=== PATIENT | male | born 1960 | race Caucasian/White ===

== ENCOUNTER 2019-11-14 22:51 | Emergency (ER) | payer BC, OTHER ==
[2019-11-14 22:59] VITALS: RESP 16
--- NOTE | 2019-11-14 23:26 | CT ---
EXAM: CT Head Without Intravenous Contrast CLINICAL HISTORY: Trauma TECHNIQUE: Axial computed tomography images of the head/brain without intravenous contrast. CTDI is 0.085, 0.085, 45.2, 12.4 mGy and DLP is 1403.4 mGy-cm. This CT exam was performed using one or more of the following dose reduction techniques: automated exposure control, adjustment of the mA and/or kV according to patient size, and/or use of iterative reconstruction technique. COMPARISON: No relevant prior studies available. FINDINGS: Brain: Scattered subarachnoid hemorrhage within the left cerebral hemisphere. Small left subdural hematoma measuring up to 5 mm without significant mass effect. Ventricles: Unremarkable. No ventriculomegaly. Bones/joints: Unremarkable. No acute fracture. Soft tissues: Posterior right scalp soft tissue swelling, likely posttraumatic. Sinuses: Mild mucosal thickening in the paranasal sinuses. Mastoid air cells: Unremarkable as visualized. No mastoid effusion. IMPRESSION: 1. Scattered subarachnoid hemorrhage within the left cerebral hemisphere. 2. Small left subdural hematoma measuring up to 5 mm without significant mass effect. EXAM: CT Cervical Spine Without Intravenous Contrast CLINICAL HISTORY: Trauma TECHNIQUE: Axial computed tomography images of the cervical spine without intravenous contrast. CTDI is 0.085, 0.085, 45.2, 12.4 mGy and DLP is 1403.4 mGy-cm. This CT exam was performed using one or more of the following dose reduction techniques: automated exposure control, adjustment of the mA and/or kV according to patient size, and/or use of iterative reconstruction technique. COMPARISON: No relevant prior studies available. FINDINGS: Vertebrae: No acute fracture or traumatic malalignment. Discs/spinal canal/neural foramina: Multilevel degenerative changes. No spinal canal stenosis. Soft tissues: Unremarkable. Lung apices: Centrilobular emphysema. IMPRESSION: No acute findings in the cervical spine. <MYCVCSECTION> Communications: 11/14/19 23:35 Call Doctor Regarding Above results, called MD Atkinson on 11/14 23:34 (-05:00)
--- NOTE | 2019-11-14 23:27 | ED ---
General Adult HPI - General Chief complaint: Fall Stated complaint: fall Time Seen by Provider: 11/14/19 22:51 Source: patient, EMS, RN notes reviewed Mode of arrival: EMS - History of Present Illness Initial comments: 59-year-old male presentsstatus post fall. Patient was climbing up stairs, his toe caught and he fell backwards striking the back of his head. He was unconscious for approximately 5 minutes according to his . No seizure activity. Patient was ambulatory according to EMS he is brought to the emergency department for evaluation. He has been drinking alcohol this evening and is clinically intoxicated. He is complaining of a mild headache. No neck pain. He was placed in a cervical collar by EMS prior to arrival. No anticoagulation. No other injuries reported from the patient. - Related Data Home Medications Medication Instructions Recorded Confirmed Gabapentin 600 mg PO BID 10/18/17 10/24/17 Ibuprofen [Motrin] 800 mg PO DAILY PRN 10/18/17 10/24/17 Allergies Allergy/AdvReac Type Severity Reaction Status Date / Time No Known Allergies Allergy Verified 10/24/17 08:16 Review of Systems ROS Statement: Those systems with pertinent positive or pertinent negative responses have been documented in the HPI. ROS Other: All systems not noted in ROS Statement are negative. Past Medical History Past Medical History: Osteoarthritis (OA) Additional Past Medical History / Comment(s): heart palpitations History of Any Multi-Drug Resistant Organisms: None Reported Past Surgical History: Orthopedic Surgery Additional Past Surgical History / Comment(s): Left foot surgery, right lower leg surgery after fracture with plate insertion. Colonoscopy. Past Anesthesia/Blood Transfusion Reactions: No Reported Reaction Past Psychological History: No Psychological Hx Reported Smoking Status: Current every day smoker Past Alcohol Use History: None Reported, Occasional Past Drug Use History: Marijuana - Past Family History Mother Family Medical History: Cancer, Vascular Disorder Additional Family Medical History / Comment(s): Bone cancer General Exam General appearance: alert, appears intoxicated Head exam: Absent: atraumatic (right occipital hematoma) Eye exam: Present: normal appearance, PERRL ENT exam: Present: normal exam Neck exam: Present: normal inspection, other (c-collar in place) Respiratory exam: Present: normal lung sounds bilaterally. Absent: respiratory distress, wheezes Cardiovascular Exam: Present: regular rate, normal rhythm GI/Abdominal exam: Present: soft. Absent: distended, tenderness, guarding Extremities exam: Present: normal inspection, normal capillary refill. Absent: pedal edema Neurological exam: Present: alert. Absent: motor sensory deficit ([address] rength in all extremities) Skin exam: Present: warm, dry Course Vital Signs 11/14/19 11/14/19 11/14/19 22:54 23:37 23:50 Pulse Rate 72 70 71 Respiratory 16 16 16 Rate Blood Pressure 130/80 116/83 109/96 O2 Sat by Pulse 98 96 96 Oximetry Medical Decision Making - Medical Decision Making 59-year-old male presents status post fall with head injury. Patient clinically intoxicated, he has stable vitals. He is moving all extremities symmetrically. Nonfocal neurologic exam. Head CT is performed, reveals 5 mm subdural and associated subarachnoid hemorrhage. No mass effect, no midline shift. Patient has stable vitals, he has reactive pupils bilaterally. He is maintaining his airway, he is moving all extremities. He is intoxicated but alert. IV will be established laboratory studies will be obtained patient will be transferred to [facility], accepting physician is Dr. Mims. Transported by EMS. - Lab Data Result diagrams: 11/14/19 23:26 11/14/19 23:26 Lab Results 11/14/19 11/14/19 11/14/19 Range/Units 23:26 23:26 23:26 WBC 8.1 (3.8-10.6) k/uL RBC 4.46 (4.30-5.90) m/uL Hgb 14.4 (13.0-17.5) gm/dL Hct 42.8 (39.0-53.0) % MCV 95.8 (80.0-100.0) fL MCH 32.4 (25.0-35.0) pg MCHC 33.8 (31.0-37.0) g/dL RDW 13.1 (11.5-15.5) % Plt Count 308 (150-450) k/uL Neutrophils % 65 % Lymphocytes % 25 % Monocytes % 6 % Eosinophils % 1 % Basophils % 1 % Neutrophils # 5.3 (1.3-7.7) k/uL Lymphocytes # 2.0 (1.0-4.8) k/uL Monocytes # 0.5 (0-1.0) k/uL Eosinophils # 0.1 (0-0.7) k/uL Basophils # 0.0 (0-0.2) k/uL PT 9.8 (9.0-12.0) sec INR 0.9 (<1.2) APTT 26.2 (22.0-30.0) sec Sodium 143 (137-145) mmol/L Potassium 4.0 (3.5-5.1) mmol/L Chloride 107 (98-107) mmol/L Carbon Dioxide 27 (22-30) mmol/L Anion Gap 9 mmol/L BUN 14 (9-20) mg/dL Creatinine 0.82 (0.66-1.25) mg/dL Est GFR (CKD-EPI)AfAm >90 (>60 ml/min/1.73 sqM) Est GFR (CKD-EPI)NonAf >90 (>60 ml/min/1.73 sqM) Glucose 98 (74-99) mg/dL Calcium 8.6 (8.4-10.2) mg/dL Total Bilirubin 0.4 (0.2-1.3) mg/dL AST 29 (17-59) U/L ALT 17 (4-49) U/L Alkaline Phosphatase 87 (38-126) U/L Total Protein 7.0 (6.3-8.2) g/dL Albumin 4.3 (3.5-5.0) g/dL Serum Alcohol 284 H* mg/dL Critical Care Time Critical Care Time: Yes Total Critical Care Time: 35 Disposition Clinical Impression: Fall, Subdural hematoma Disposition: OTHER INSTITUTION NOT DEFINED Condition: Serious Is patient prescribed a controlled substance at d/c from ED?: No Referrals: Edyta Anders DO [Primary Care Provider] - 1-2 days Time of Disposition: 23:33 - Out of Hospital Transfer - Req. Specs Out of Hospital Transfer - Requested Specifics: Other Emergency Center (transferred to [facility])
[2019-11-14 23:43] LABS: Basophils % (A) 1 %; Eosinophils # (A) 0.1 k/uL (0-0.7); Eosinophils % (A) 1 %; HCT 42.8 % (39.0-53.0); HGB 14.4 gm/dL (13.0-17.5); Lymphocytes % (A) 25 %; MCH 32.4 pg (25.0-35.0); MCHC 33.8 g/dL (31.0-37.0); MCV 95.8 fL (80.0-100.0); Mean Platelet Volume 6.8; Monocytes # (A) 0.5 k/uL (0-1.0); Monocytes % (A) 6 %; Neutrophils # (A) 5.3 k/uL (1.3-7.7); Neutrophils % (A) 65 %; Platelet Count 308 k/uL (150-450); RBC 4.46 m/uL (4.30-5.90); RDW 13.1 % (11.5-15.5); WBC 8.1 k/uL (3.8-10.6)
[2019-11-14] MEDS ORDERED: levETIRAcetam IV 1,000 MG in SALINE 1 100ML.BAG IVPB STA (23:44)
[2019-11-14] MEDS ORDERED: SODIUM CHLORIDE 0.9% 1,000 ML IV SCH (23:45)
[2019-11-14 23:51] VITALS: BP 109/96; PULSE 71
[2019-11-14 23:52] LABS: INR 0.9 (<1.2); Partial Thromboplastin Time 26.2 sec (22.0-30.0); Prothrombin Time 9.8 sec (9.0-12.0)
[2019-11-14 23:55] LABS: ALT 17 U/L (4-49); AST 29 U/L (17-59); African American GFR (CKD) >90 (>60 ml/min/1.73 sqM); Albumin 4.3 g/dL (3.5-5.0); Alkaline Phosphatase 87 U/L (38-126); Anion Gap 9 mmol/L; Blood Urea Nitrogen 14 mg/dL (9-20); Calcium 8.6 mg/dL (8.4-10.2); Carbon Dioxide 27 mmol/L (22-30); Chloride 107 mmol/L (98-107); Glucose 98 mg/dL (74-99); Non-African American GFR(CKD) >90 (>60 ml/min/1.73 sqM); Sodium 143 mmol/L (137-145); Total Bilirubin 0.4 mg/dL (0.2-1.3)
[2019-11-14 23:57] LABS: Alcohol 284 mg/dL
== END 2019-11-15 00:16 | disposition short-term general hospital (02) ==
LOC: EC 22:51
DX: S06.5X1A Traumatic subdural hemorrhage with loss of consciousness of 30 minutes or less, initial encounter (principal); S06.6X1A Traumatic subarachnoid hemorrhage with loss of consciousness of 30 minutes or less, initial encounter; F10.129 Alcohol abuse with intoxication, unspecified; M19.90 Unspecified osteoarthritis, unspecified site; F17.200 Nicotine dependence, unspecified, uncomplicated; Z79.1 Long term (current) use of non-steroidal anti-inflammatories (NSAID); Z79.899 Other long term (current) drug therapy; Y90.8 Blood alcohol level of 240 mg/100 ml or more; W01.0XXA Fall on same level from slipping, tripping and stumbling without subsequent striking against object, initial encounter; Y93.39 Activity, other involving climbing, rappelling and jumping off
CPT/HCPCS: 36415; 80053; 85025; 85610; 85730; 80320; 72125; 70450; 99291; 96374; J1953

== ENCOUNTER → 2024-09-03 | Outpatient (CLI) | payer BC ==
--- NOTE | 2024-09-03 11:56 | CA ---
Exercise Stress Test Report Name: Christy Harper Exam Date: 09/03/2024 09:24 Exam Location: [place] Stress Ht (in): 74 Wt (lb): 165 BSA: 2.00 Ordering Phys: Edyta Anders DO Referring Phys: Edyta Anders DO Technologist: GELA Age: 64 Gender: M : 1960 Procedure CPT: Indications: angina ICD-10 Codes: Patient History: chest pain, palpitations, FAMILY HX OF HEART DISEASE, CURRENT SMOKER 1 PPD X 50 YEARS, COPD, DIFFICULTY IN BREATHING, Medications: HYDROCODONE,,,, TADALAFIL,,, Meds past 24 hrs: Pretest Chest Pain: STRESS TEST Reji Protocol Exercise Duration (min:sec): 09:[address] Depressions (mm): Angina Score: Gómez Score: Resting HR (bpm): 66 Peak HR (bpm): 135 Resting BP (mmHg): 129 / 72 Peak BP (mmHg): 152 / 66 MPHR: 155 Target HR: 132 % MPHR: 87 METS: 10.3 Total Dose: Peak Dose: Atropine: Double Product: 20929 BP Response: Stress Termination: TARGET HR REACHED/MAX EXERTION Stress Symptoms: NO SYMPTOMS Stress Summary: The patient's target heart rate was achieved ECG ANALYSIS Resting ECG: Sinus rhythm. Normal conduction. No arrhythmias. Normal repolarization. Stress ECG: No ECG evidence of ischemia with exercise. Ventricular premature contraction. CONCLUSIONS Good exercise tolerance Normal electrocardiographic response to exercise Nuclear images will be reported separately Dr. Kervin Sher MD (Electronically Signed) Final Date: 03 September 2024 11:55
--- NOTE | 2024-09-03 13:39 | NM ---
EXAMINATION TYPE: NM stress cardiolite complete DATE OF EXAM: 09/03/2024 COMPARISON: NONE CLINICAL INDICATION: Male, 64 years old with history of angina; TECHNIQUE: After the intravenous administration of 10.04 mCi Tc 99m Sestamibi - Rest images obtained 60 minutes post injection. The patient exercised using a KATELYNN protocol and 1 minute prior to peak exercise was injected with 27.2 mCi Tc 99m Sestamibi - Stress images obtained 35 minutes post inject ion. FINDINGS: Targeted heart rate was achieved during performance of the study. Review of stress and rest SPECT casey ges demonstrates decreased perfusion involving the inferior wall and cardiac apex on both rest and st ress images. No reversible ischemia seen. Gated analysis shows normal wall motion with an estimated l eft ventricular ejection fraction of 63 %. IMPRESSION: No scintigraphic evidence for reversible ischemia [facility] Mavis Camargo, , 09/03/2024 1:36 PM
== END | disposition home or self-care (01) ==
LOC: RADNMMAIN 07:50
PROVIDERS: ATTEND Family Medicine
DX: I20.9 Angina pectoris, unspecified
CPT/HCPCS: 78452; 93017